=== PATIENT | female | born 1950 | race Caucasian/White ===

== ENCOUNTER → 2019-03-25 | Outpatient (CLI) | payer MEDICARE ==
[~2019-03-25] MED LIST: ACET325 PO; Augmentin 875-1 EACH PO; CENTRUM SILVER1 EAC2 PO; CHOL10002 PO; CIPR500 PO; CITA20 PO; CONEST1.25; CYAN1000 PO; FENO145 PO; FENO160; FISH OIL 1,2001 EAC1 PO; GABA100 PO; GLIP5 PO; HYDR1TAB94 PO; IBUP600 PO; IBUP800 PO; Lisinopril2.5 MG PO; OXYB5 PO; TOLT2; TRAM50 PO; VITAMINS; Valium5 MG PO
[2019-03-25 15:18] LABS: Appearance, Urine Cloudy (Clear); Bilirubin, Urine Neg (Neg); Blood, Urine 5+ (Neg); Color, Urine Yellow (P-Yellow); Glucose Qualitative, Urine Neg (Neg); Ketones, Urine Neg (Neg); Leukocyte Esterase, Urine 3+ (Neg); Nitrite, Urine Pos (Neg); Protein, Urine 4+ (Neg); Urobilinogen, Urine NORM (Normal)
[2019-03-25 15:38] LABS: Bacteria Many /hpf; Squamous Epithelial Cells Not Seen /hpf (Few); White Blood Cells, Urine TNTC /hpf (0-5)
== END | disposition home or self-care (01) ==
LOC: LAB SHORT 13:58 → LAB 13:58
PROVIDERS: Internal Medicine Nephrology
DX: N39.0 Urinary tract infection, site not specified (principal)
CPT/HCPCS: 81001; 87077; 87086; 87186

== ENCOUNTER 2019-04-28 18:06 | Emergency (ER) | payer MEDICARE ==
[~2019-04-28] VITALS: Ht 170.2 cm; Wt 89.4 kg
[~2019-04-28 18:06] MED LIST changes: -Augmentin 875-1 EACH PO
[2019-04-28] MEDS ORDERED: Augmentin 875-1 EACH PO (20:28)
== END 2019-04-28 20:39 | disposition home or self-care (01) ==
LOC: ER 18:06
DX: S61.451A Open bite of right hand, initial encounter (principal); W54.0XXA Bitten by dog, initial encounter; Z88.6 Allergy status to analgesic agent; Z88.8 Allergy status to other drugs, medicaments and biological substances; Z79.899 Other long term (current) drug therapy; Z79.891 Long term (current) use of opiate analgesic; I10 Essential (primary) hypertension; E78.5 Hyperlipidemia, unspecified; F32.9 Major depressive disorder, single episode, unspecified; F17.200 Nicotine dependence, unspecified, uncomplicated
CPT/HCPCS: 12002; 73130; 90471; 90714; 99283-25

== ENCOUNTER 2021-02-06 01:38 | Emergency (ER) | payer OTHER ==
[~2021-02-06] VITALS: Ht 165.1 cm; Wt 81.7 kg
[~2021-02-06 01:38] MED LIST changes: +Augmentin 875-1 EACH PO
[2021-02-06] MEDS ORDERED: TRAM50 PO (01:59)
[2021-02-06] MEDS ORDERED: GABA100 PO (02:00)
[2021-02-06] MEDS ORDERED: GLIP5 PO (02:00)
[2021-02-06] MEDS ORDERED: Lisinopril2.5 MG PO (02:00)
[2021-02-06] MEDS ORDERED: OXYB5 PO (02:01)
[2021-02-06] MEDS ORDERED: FENOFIBRATE145 MG PO (02:01)
[2021-02-06] MEDS ORDERED: CENTRUM SILVER1 EAC2 PO (02:02)
[2021-02-06] MEDS ORDERED: THERA-D2000 UNIT PO (02:02)
[2021-02-06] MEDS ORDERED: CITALOPRAM HBR20 M2 PO (02:02)
[2021-02-06] MEDS ORDERED: FISH OIL 1,2001 EAC1 PO (02:03)
[2021-02-06] MEDS ORDERED: BASAGLAR K100 UNIT/1 SC (02:03)
== END 2021-02-06 03:09 | disposition home or self-care (01) ==
LOC: ER 01:38
DX: S16.1XXA Strain of muscle, fascia and tendon at neck level, initial encounter (principal); I10 Essential (primary) hypertension; E78.5 Hyperlipidemia, unspecified; E11.40 Type 2 diabetes mellitus with diabetic neuropathy, unspecified; F17.200 Nicotine dependence, unspecified, uncomplicated; Z79.899 Other long term (current) drug therapy; Z88.6 Allergy status to analgesic agent; Z88.8 Allergy status to other drugs, medicaments and biological substances; X50.0XXA Overexertion from strenuous movement or load, initial encounter
CPT/HCPCS: 72125; 96372; 99283-25; A9270; J1885

== ENCOUNTER → 2021-02-15 | Outpatient (CLI) | payer OTHER ==
[~2021-02-15] MED LIST changes: +BASAGLAR K100 UNIT/1 SC; +CITALOPRAM HBR20 M2 PO; +FENOFIBRATE145 MG PO; +THERA-D2000 UNIT PO
== END | disposition home or self-care (01) ==
LOC: LAB EV 14:45 → LAB SHORT 14:45
DX: N39.0 Urinary tract infection, site not specified (principal)
CPT/HCPCS: 87077; 87086; 87186

== ENCOUNTER → 2022-10-24 | Outpatient (CLI) | payer OTHER ==
[2022-10-24 17:55] LABS: U Amphetamine Screen Not Detected; U Barbituate Screen Not Detected; U Benzodiazapine Screen Not Detected; U Buprenorphine Screen Not Detected; U Cannabinoids Screen Not Detected; U Cocaine Screen Not Detected; U Methadone Screen Not Detected; U Methamphetamine Screen Not Detected; U Opiates Screen Not Detected; U Oxycodone Screen Not Detected; U Phencyclidine Screen Not Detected; U Propoxyphene Screen Not Detected
== END | disposition home or self-care (01) ==
LOC: LAB SHORT 16:30
PROVIDERS: Physician Assistant
DX: Z51.81 Encounter for therapeutic drug level monitoring (principal); Z79.899 Other long term (current) drug therapy

== ENCOUNTER 2023-01-24 08:09 | Day surgery (SDC) | payer OTHER ==
[~2023-01-24] VITALS: Ht 165.1 cm; Wt 79.4 kg
[2023-01-24] VITALS (19 sets, daily range): BP systolic 96–184; BP diastolic 41–103
[~2023-01-24 08:09] MED LIST changes: +Crestor20 MG PO; +INSULANPEN SC; +MONT10T
--- NOTE | 2023-01-24 08:46 | NUR ---
Patient up to Ambulate independently. Gait steady. History, Chart, Medications and Allergies reviewed before start of procedure.Patient confirms NPO status and agrees with scheduled surgery. Patient States Post-Procedure ride home has been arranged. Pre-Op teaching done. Pt verbalizes understanding.
--- NOTE | 2023-01-24 09:40 | NUR ---
01/24/23 0940 Yolanda Bermudez HISTORY, CHART, MEDICATIONS AND ALLERGIES REVIEWED BEFORE START OF PROCEDURE. PATIENT CONFIRMS NPO STATUS AND AGREES WITH SCHEDULED PROCEDURE. 3-LEAD EKG REVIEWED WITH PHYSICIAN PRIOR TO START OF PROCEDURE. MONITOR INTACT WITH CONTINUOUS PULSE OXIMETRY,CAPNOGRAPHY, 3-LEAD EKG, INTERMITTENT BP. SUPPLEMENTAL O2 TO BE TITRATED THROUGHOUT PROCEDURE TO MAINTAIN O2 SATURATION ABOVE 90%. PATIENT DETERMINED TO BE ASA APPROPRIATE FOR PROPOFOL SEDATION PRIOR TO START OF PROCEDURE BY DR. HAWKINS. MEDICATION ADMINISTRATION BY ORD.NCP, CHARTING COMPLETED BY ORD.ERF.
--- NOTE | 2023-01-24 09:50 | NUR ---
REPORT RECEIVED FROM HECTOR BELL RN. VSS. PT RESTING COMFORTABLY IN BED. PT ABLE TO REPOSITION SELF IN BED. PT REQUESTING PO FLUIDS AND TOLERATING THEM WELL. PT BLOOD SUGAR TAKEN AND REPORTED TO DR HAWKINS.
--- NOTE | 2023-01-24 10:26 | NUR ---
Patient up to Ambulate independently. Gait steady. VSS AND CONSISTENT WITH PT BASELINE. Discharge instructions reviewed with patient. Patient verbalizes understanding. Copy given to patient to take home. Patient States Post-Procedure ride home has been arranged. Discharged via wheelchair to private car for ride home. PT BELONGINGS RETURNED TO PT.
== END 2023-01-24 22:43 | disposition home or self-care (01) ==
LOC: ORSCMMR 08:09 → ORD 09:00 → ORSCMMR 22:43
PROVIDERS: Internal Medicine Gastroenterology
PROC: 0DBM8ZX Excision of Descending Colon, Via Natural or Artificial Opening Endoscopic, Diagnostic (ICD-10-PCS; principal; 2023-01-24 09:00)
DX: Z12.11 Encounter for screening for malignant neoplasm of colon (principal); Z86.010 Personal history of colon polyps; D12.4 Benign neoplasm of descending colon; F32.A Depression, unspecified; E78.00 Pure hypercholesterolemia, unspecified; E11.9 Type 2 diabetes mellitus without complications; Z79.899 Other long term (current) drug therapy
CPT/HCPCS: 82947; 88305; J2250; J2704; J7120

== ENCOUNTER → 2025-07-15 | Outpatient (CLI) | payer OTHER | LOC: LAB SHORT 15:58 → LAB 15:58 | DX: R30.0 Dysuria (principal) | CPT/HCPCS: 87086 ==